=== PATIENT | female | born 1960 | race Caucasian/White ===

== ENCOUNTER 2022-10-10 10:33 | Outpatient (CLI) | payer MEDICAID | END 2022-10-10 23:59 | disposition home or self-care (01) | LOC: RAD 10:33 | PROVIDERS: ATTEND Psychiatry & Neurology Neurology | DX: M79.18 Myalgia, other site (principal); R55 Syncope and collapse | CPT/HCPCS: 95816 ==

== ENCOUNTER 2023-08-19 12:46 | Emergency (ER) | payer MEDICAID ==
[~2023-08-19] VITALS: Ht 162.6 cm; Wt 60.5 kg
[2023-08-19 13:40] VITALS: TEMP 98.2
[2023-08-19] MEDS ORDERED: ZOLP12.555 PO (14:00)
[2023-08-19] MEDS ORDERED: ESTR1TAB28 PO (14:00)
[2023-08-19] MEDS: LORazepam 2 mg/ml vial IV ONE (14:06)
[2023-08-19 15:25] LABS: BASOPHILS % (AUTO) 0.5 % (0-1); EOSINOPHILS % (AUTO) 0.5 % (0-6); HEMATOCRIT 46.7 % (35.0-45.0); HEMOGLOBIN 15.8 g/dl (12.0-16.0); LYMPHOCYTES # (AUTO) 1.2 X10'3 (1.1-4.8); LYMPHOCYTES % (AUTO) 22.7 % (21-51); MEAN CORPUSCULAR HEMOGLOBIN 32.2 PG (27.0-31.0); MEAN CORPUSCULAR HGB CONC 33.9 g/dL (33.0-36.5); MEAN CORPUSCULAR VOLUME 95.1 FL (78-98); MEAN PLATELET VOLUME 7.6 FL (7.4-10.4); MONOCYTES # (AUTO) 0.5 X10'3 (0-0.9); MONOCYTES % (AUTO) 8.9 % (2-12); NEUTROPHILS # (AUTO) 3.6 X10'3 (1.8-7.7); NEUTROPHILS % (AUTO) 67.4 % (42-75); PLATELET COUNT 288 X10'3 (140-440); RED BLOOD COUNT 4.91 X10'6 (4.20-5.60); RED CELL DISTRIBUTION WIDTH 13.4 % (11.5-14.5); WHITE BLOOD COUNT 5.3 X10'3 (4.5-11.0)
[2023-08-19 15:32] LABS: ALBUMIN 3.6 G/DL (3.4-5.0); ANION GAP 7 (8-16); BLOOD UREA NITROGEN 19 MG/DL (7-18); BUN/CREATININE RATIO 24.4 (10.0-20.0); CALCIUM 8.7 MG/DL (8.5-10.1); CHLORIDE 106 MMOL/L (99-107); CREATININE 0.78 MG/DL (0.40-0.90); GLUCOSE 96 MG/DL (70-104); PRO BRAIN NATRIURETIC PEPTIDE < 30 PG/ML (0-125); SODIUM 141 MMOL/L (135-145); TOTAL CARBON DIOXIDE 28.4 MMOL/L (24-32); eCRCL 65 ML/MIN; eGFR 75 ML/MIN
[2023-08-19 20:00] VITALS: BP 110/68; PULSE 68; RESP 13; O2SAT 94
== END 2023-08-19 20:19 | disposition home or self-care (01) ==
LOC: ER 12:46
DX: R07.89 Other chest pain (principal); R00.2 Palpitations; Z79.899 Other long term (current) drug therapy
CPT/HCPCS: 36415; 71045; 80048; 83735; 83880; 84484; 85025; 85379; 93005; 96374; 99285; J2060

== ENCOUNTER 2023-08-22 10:09 | Emergency (ER) | payer MEDICAID ==
[~2023-08-22] VITALS: Ht 154.9 cm; Wt 133.0 kg
[~2023-08-22 10:09] MED LIST: ESTR1TAB28 PO; ZOLP12.555 PO
[2023-08-22 10:19] VITALS: TEMP 98.4
[2023-08-22 15:00] VITALS: BP 99/69; PULSE 65; RESP 13; O2SAT 97
== END 2023-08-22 15:10 | disposition home or self-care (01) ==
LOC: ER 10:10
DX: R00.2 Palpitations (principal); F41.9 Anxiety disorder, unspecified; M81.0 Age-related osteoporosis without current pathological fracture; G89.29 Other chronic pain; R55 Syncope and collapse; Z87.81 Personal history of (healed) traumatic fracture; Z79.899 Other long term (current) drug therapy
CPT/HCPCS: 93005; 99285

== ENCOUNTER 2023-12-05 22:17 | Emergency (ER) | payer MEDICAID ==
[~2023-12-05] VITALS: Ht 162.6 cm; Wt 60.5 kg
[2023-12-05 22:21] VITALS: BP 137/67; PULSE 65; TEMP 98.1; O2SAT 99
[2023-12-05 22:30] VITALS: RESP 14
== END 2023-12-06 01:09 | disposition left against medical advice (07) ==
LOC: ER 22:18
DX: F41.9 Anxiety disorder, unspecified (principal); R53.1 Weakness; Z53.21 Procedure and treatment not carried out due to patient leaving prior to being seen by health care provider

== ENCOUNTER 2023-12-24 15:50 | Emergency (ER) | payer MEDICAID ==
[~2023-12-24] VITALS: Ht 162.6 cm; Wt 61.4 kg
[~2023-12-24 15:50] MED LIST changes: -ZOLP12.555 PO; +ZOLP12.570 PO
[2023-12-24 16:19] LABS: BASOPHILS % (AUTO) 0.7 % (0-1); EOSINOPHILS # (AUTO) 0.2 X10'3 (0-0.9); EOSINOPHILS % (AUTO) 2.9 % (0-6); HEMATOCRIT 48.1 % (35.0-45.0); HEMOGLOBIN 16.2 g/dl (12.0-16.0); LYMPHOCYTES # (AUTO) 1.9 X10'3 (1.1-4.8); LYMPHOCYTES % (AUTO) 35.6 % (21-51); MEAN CORPUSCULAR HEMOGLOBIN 32.4 PG (27.0-31.0); MEAN CORPUSCULAR HGB CONC 33.6 g/dL (33.0-36.5); MEAN CORPUSCULAR VOLUME 96.3 FL (78-98); MEAN PLATELET VOLUME 8.1 FL (7.4-10.4); MONOCYTES # (AUTO) 0.4 X10'3 (0-0.9); MONOCYTES % (AUTO) 6.7 % (2-12); NEUTROPHILS # (AUTO) 2.9 X10'3 (1.8-7.7); NEUTROPHILS % (AUTO) 54.1 % (42-75); PLATELET COUNT 267 X10'3 (140-440); RED CELL DISTRIBUTION WIDTH 13.5 % (11.5-14.5); WHITE BLOOD COUNT 5.3 X10'3 (4.5-11.0)
[2023-12-24 16:38] LABS: ALANINE AMINOTRANSFERASE 74 U/L (12-78); ALBUMIN 3.6 G/DL (3.4-5.0); ALBUMIN/GLOBULIN RATIO 0.9 (1.1-1.5); ALKALINE PHOSPHATASE 84 IU/L (46-116); ANION GAP 8 (8-16); ASPARTATE AMINO TRANSFERASE 37 U/L (10-37); BILIRUBIN,TOTAL 0.4 MG/DL (0.1-1.0); BLOOD UREA NITROGEN 19 MG/DL (7-18); BUN/CREATININE RATIO 18.3 (10.0-20.0); CALCIUM 9.4 MG/DL (8.5-10.1); CHLORIDE 104 MMOL/L (99-107); CREATININE 1.04 MG/DL (0.40-0.90); GLUCOSE 116 MG/DL (70-104); POTASSIUM 3.9 MMOL/L (3.5-5.1); SODIUM 139 MMOL/L (135-145); TOTAL CARBON DIOXIDE 26.7 MMOL/L (24-32); TOTAL PROTEIN 7.4 G/DL (6.4-8.2); eCRCL 48 ML/MIN; eGFR 54 ML/MIN
[2023-12-24 16:54] LABS: FREE T4 (FREE THYROXINE) 1.09 NG/DL (0.73-1.40); PRO BRAIN NATRIURETIC PEPTIDE < 30 PG/ML (0-125); THYROID STIMULATING HORMONE 0.89 ulU/ml (0.34-4.50)
[2023-12-24 17:18] LABS: APTT 30 SECONDS (22-32); PROTHROMBIN TIME 10.7 SECONDS (9.0-12.0)
[2023-12-24 17:24] LABS: BILIRUBIN,URINE NEGATIVE (Neg); CLARITY,URINE SLIGHTLY CLOUDY (Clear); COLOR,URINE YELLOW (Yellow); GLUCOSE, URINE NEGATIVE (Neg); KETONES,URINE NEGATIVE (Neg); LEUKOCYTE ESTERASE ,URINE NEGATIVE (Neg); NITRITES, URINE NEGATIVE (Neg); OCCULT BLOOD,URINE NEGATIVE (Neg); PH,URINE 6.5 (4.8-8.0); PROTEIN,URINE NEGATIVE (Neg); UROBILINOGEN,URINE 0.2 E.U/dL (0.2-1.0)
[2023-12-24 17:40] LABS: UA COLLECTION TYPE CLN CATCH MIDSTREAM
[2023-12-24 17:41] LABS: BACTERIA,URINE 1+ /HPF (Neg); MUCUS STRANDS FEW /LPF (Neg); TRANSITIONAL EPI CELLS,URINE MODERATE /HPF
[2023-12-24 17:42] LABS: RBC,URINE 0-2 /HPF (0-2)
[2023-12-24 17:43] LABS: SQUAMOUS EPITHELIAL CELL,UR MODERATE /LPF (FEW)
[2023-12-24 19:33] VITALS: BP 134/81; PULSE 77; RESP 14; TEMP 98.4; O2SAT 98
== END 2023-12-24 19:33 | disposition home or self-care (01) ==
LOC: ER 15:50
DX: R07.9 Chest pain, unspecified (principal); F41.9 Anxiety disorder, unspecified; Z79.899 Other long term (current) drug therapy
CPT/HCPCS: 36415; 71045; 80053; 81001; 83880; 84439; 84443; 84484; 85025; 85610; 85730; 87088; 93005; 99285

== ENCOUNTER 2024-09-08 22:30 | Inpatient (IN) | payer MEDICAID ==
[~2024-09-08] VITALS: Ht 162.6 cm; Wt 65.6 kg
[2024-09-08 22:58] LABS: BASOPHILS % (AUTO) 0.8 % (0-1); EOSINOPHILS # (AUTO) 0.1 X10'3 (0-0.9); EOSINOPHILS % (AUTO) 3.3 % (0-6); HEMATOCRIT 45.9 % (35.0-45.0); HEMOGLOBIN 15.2 g/dl (12.0-16.0); LYMPHOCYTES # (AUTO) 2.3 X10'3 (1.1-4.8); LYMPHOCYTES % (AUTO) 53.3 % (21-51); MEAN CORPUSCULAR HEMOGLOBIN 32.4 PG (27.0-31.0); MEAN CORPUSCULAR HGB CONC 33.2 g/dL (33.0-36.5); MEAN CORPUSCULAR VOLUME 97.7 FL (78-98); MEAN PLATELET VOLUME 7.6 FL (7.4-10.4); MONOCYTES # (AUTO) 0.3 X10'3 (0-0.9); MONOCYTES % (AUTO) 7.4 % (2-12); NEUTROPHILS # (AUTO) 1.5 X10'3 (1.8-7.7); NEUTROPHILS % (AUTO) 35.2 % (42-75); PLATELET COUNT 270 X10'3 (140-440); RED BLOOD COUNT 4.69 X10'6 (4.20-5.60); RED CELL DISTRIBUTION WIDTH 13.3 % (11.5-14.5); WHITE BLOOD COUNT 4.4 X10'3 (4.5-11.0)
[2024-09-08 23:08] LABS: D-DIMER < 0.19 MG/L FEU (0-0.50)
[2024-09-08 23:11] LABS: ALANINE AMINOTRANSFERASE 29 U/L (12-78); ALBUMIN 3.6 G/DL (3.4-5.0); ALBUMIN/GLOBULIN RATIO 1.1 (1.1-1.5); ALKALINE PHOSPHATASE 62 IU/L (46-116); ANION GAP 8 (8-16); ASPARTATE AMINO TRANSFERASE 16 U/L (10-37); BILIRUBIN,TOTAL 0.5 MG/DL (0.1-1.0); BLOOD UREA NITROGEN 11 MG/DL (7-18); BUN/CREATININE RATIO 17.7 (10.0-20.0); CALCIUM 8.9 MG/DL (8.5-10.1); CHLORIDE 105 MMOL/L (99-107); CREATININE 0.62 MG/DL (0.40-0.90); GLUCOSE 99 MG/DL (70-104); POTASSIUM 3.2 MMOL/L (3.5-5.1); SODIUM 140 MMOL/L (135-145); TOTAL CARBON DIOXIDE 26.7 MMOL/L (24-32); TOTAL PROTEIN 6.9 G/DL (6.4-8.2); eCRCL 80 ML/MIN; eGFR > 90 ML/MIN
[2024-09-08 23:20] LABS: CREATINE KINASE 38 U/L (26-192); MAGNESIUM 1.9 MG/DL (1.5-2.4); PRO BRAIN NATRIURETIC PEPTIDE 78 PG/ML (0-125)
[2024-09-08 23:22] LABS: FREE T4 (FREE THYROXINE) 0.99 NG/DL (0.73-1.40)
[2024-09-08 23:33] LABS: TOTAL CELLS COUNTED 100
[2024-09-08] MEDS ORDERED: CHOL100017 PO (23:57)
[2024-09-08] MEDS ORDERED: ALPR1TAB7 PO (23:57)
[2024-09-09] VITALS (13 sets, daily range): BP systolic 102–137; BP diastolic 61–77; PULSE 54–112; RESP 12–18; TEMP 96.6–97.6; O2SAT 94–99
[2024-09-09] MEDS ORDERED: potassium Cl 40MEQ/1/2NS 520ml 520 ML IV PRN (00:45)
[2024-09-09] MEDS ORDERED: magnesium sulf-water 2g/50mL 50 ML IV PRN (00:45)
[2024-09-09] MEDS ORDERED: mag hydrox/Alum hydrox/simeth 30ml oral suspension PO PRN (00:45)
[2024-09-09] MEDS ORDERED: morphine 2 MG/ML inj. syringe IV PRN ×2 (00:45)
[2024-09-09] MEDS ORDERED: magnesium sulf-water 4G/100mL 100 ML IV PRN (00:45)
[2024-09-09] MEDS ORDERED: magnesium Cl slow-release 64mg tablet PO PRN (00:45)
[2024-09-09] MEDS ORDERED: ondansetron/PF 4mg/2ml inj IV PRN (00:45)
[2024-09-09] MEDS ORDERED: potassium Cl 20 mEq SR tablet PO PRN (00:45)
[2024-09-09] MEDS ORDERED: magnesium hydroxide 30ml (MOM) UD suspension PO PRN (00:45)
[2024-09-09] MEDS ORDERED: zolpidem 5mg tablet PO PRN (00:45)
[2024-09-09] MEDS: potassium Cl 20 mEq SR tablet PO PRN (01:18)
[2024-09-09] MEDS: normal saline 1000ml 1,000 ML IV SCH (01:18)
[2024-09-09 01:33] LABS: MAGNESIUM 1.9 MG/DL (1.5-2.4); POTASSIUM 3.4 MMOL/L (3.5-5.1)
[2024-09-09] MEDS ORDERED: metoprolol tartrate 1mg/ml inj IV PRN (01:45)
[2024-09-09] MEDS ORDERED: aminophylline 500mg/20ml vial IV PRN (01:45)
[2024-09-09] MEDS ORDERED: nitroGLYCERIN 0.4mg SUBLingual tab SL PRN (01:45)
[2024-09-09] MEDS: acetaminophen 325mg tablet PO PRN (02:57)
[2024-09-09] MEDS: estradiol 1mg tablet PO SCH (07:10)
[2024-09-09] MEDS: docusate sod 100mg capsule PO SCH (07:11)
[2024-09-09] MEDS: cholecalciferol (vitamin D3) 1,000 unit (25mcg) tablet PO SCH (07:11)
[2024-09-09] MEDS: ALPRAZolam 0.5mg tablet PO SCH (07:11)
[2024-09-09] MEDS: K and/or MAG REPLACEMENT MC SCH (07:15)
[2024-09-09] MEDS: heparin, porcine 5000 units/ml vial SQ SCH (07:17)
[2024-09-09] MEDS: regadenoson 0.4mg/5ml syringe IV PRN (09:14)
[2024-09-09] MEDS: pantoprazole 40MG/NS 100ML BAG 100 ML IV SCH (12:51)
[2024-09-09 13:20] LABS: CHOL/HDL RATIO 2.6 (0.00-4.99); CHOLESTEROL 250 MG/DL (0-200); HDL CHOLESTEROL 95 MG/DL (35-60); LDL CHOLESTEROL 129 MG/DL (50-100); TRIGLYCERIDES 86 MG/DL (20-135)
[2024-09-09] MEDS ORDERED: PANT-47 PO (14:31)
[2024-09-09] MEDS ORDERED: ATOR10TA PO (14:55)
== END 2024-09-09 16:11 | disposition home or self-care (01) | DRG 198 ==
LOC: ER 22:31 → ED HOLD 09-09 00:42 → PCU 3S 09-09 01:40
PROVIDERS: ADMIT Surgery; ATTEND Family Medicine
PROC: 4A02XM4 Measurement of Cardiac Total Activity, External Approach (ICD-10-PCS; principal; 2024-09-09)
PROC: 3E033HZ Introduction of Radioactive Substance into Peripheral Vein, Percutaneous Approach (ICD-10-PCS; 2024-09-09)
DX: I20.89 Other forms of angina pectoris (principal); E78.5 Hyperlipidemia, unspecified; F41.9 Anxiety disorder, unspecified; Z79.899 Other long term (current) drug therapy; G47.00 Insomnia, unspecified; N95.1 Menopausal and female climacteric states; M81.0 Age-related osteoporosis without current pathological fracture
CPT/HCPCS: 36415; 71045; 78452; 80053; 80061; 82550; 83735; 83880; 84132; 84439; 84443; 84484; 85007; 85025; 85379; 87081; 93005; 93017; 93306; 99285; A9500; G0378; J2470; J2785; J7030

== ENCOUNTER 2024-12-24 20:17 | Emergency (ER) | payer MEDICAID, SELFPAY ==
[~2024-12-24] VITALS: Ht 162.6 cm; Wt 64.0 kg
[~2024-12-24 20:17] MED LIST changes: +ALPR1TAB7 PO; +ATOR10TA PO; +CHOL100017 PO; +PANT-47 PO
--- NOTE | 2024-12-24 20:40 | Physician Documentation ---
History of Present Illness ~ Chief Complaint: Rapid Heartbeat Stated Complaint: HEART PROBLEMS Time Seen by MD: 20:21 Primary Medical Doctor: LILIANA FLORES 64-year-old female who presents with palpitations She reports a history of SVT in the past. She also reports a history of anxiety. She tells me that she had a normal day including went for a 4 mi walk this morning and felt okay. She was sitting at home, and suddenly started to feel like her heart was racing. She started to feel lightheaded and short of breath. She felt clammy. This felt similar to past episodes and so she tried doing vagal maneuvers. She also took a Xanax. However the symptoms continued and so she called an ambulance. EMS reports that she was in sinus rhythm, mildly tachycardic. She was given IV fluids. By time of my evaluation she states she is feeling somewhat better. She still feels slightly anxious, but no longer is having bad palpitations. She denies any chest pain or significant shortness of breath currently. Medication Reconciliation Allergies: Coded Allergies: No Known Allergies (Unverified , 12/24/24) Scheduled Alprazolam (Alprazolam), 1 TAB PO TID, (Reported) Atorvastatin Calcium (Lipitor), 4 TAB PO DAILY Cholecalciferol (Vitamin D3) (Vitamin D3), 1 TAB PO DAILY, (Reported) Estradiol (Estradiol), 1 TAB PO DAILY, (Reported) Pantoprazole Sodium (PROTONIX tablet), 40 MG PO DAILY Scheduled PRN Zolpidem Tartrate (Zolpidem Tartrate), 1 TAB PO HS PRN for anxiety, (Reported) Past Medical History Past Medical History: Osteoporosis, *PSYCH*, Anxiety Past Surgical History: noncontributory Lives In: Home Review of Systems Constitutional: Denies: fever Respiratory: Reports: shortness of breath Cardiovascular: Reports: lightheadedness, palpitations; Denies: chest pain Physical Exam Vital Signs: Temperature: 98.1, Source: Oral, Heart Rate: 67, Respiratory Rate: 16, BP: 130/74, Pulse Oximetry: 97, Weight: 64.000 Oxygen Flow Rate: 0 Physical Exam General: This is a pleasant and overall healthy appearing middle-aged female, son at bedside HEENT: Atraumatic, oropharynx is moist Heart: Regular rate and rhythm, heart rate in the 60s to 70s, appears sinus rhythm on the monitor, normal-appearing peripheral perfusion Lungs: Clear breath sounds bilateral, normal work of breathing, normal oxygen saturation on room air Abdomen: Soft, nondistended, nontender all quadrants Extremities: Warm and well-perfused, no posterior calf or thigh tenderness, no edema Neuro: Alert and oriented Psychiatric: Appears mildly anxious but is cooperative Progress Results/Orders Results/Orders Orders - CRISTIANA WARD MD Electrocardiogram (12/24/24 20:22) Chest,Single View (12/24/24 20:31) Monitor (12/24/24 20:31) Saline Lock (12/24/24 20:31) Oxygen (12/24/24 20:31) Completed Orders - CRISTIANA WARD MD Chest,Single View (12/24/24 20:31) Cbc/Diff (12/24/24 20:31) BMP (12/24/24 20:31) PBNP (12/24/24 20:31) Hs Troponin I W Calculations (12/24/24 20:31) MG (12/24/24 20:40) Vital Signs 12/24/24 12/24/24 12/24/24 12/24/24 20:18 20:24 20:39 21:33 Temp 98.1 Pulse 70 67 60 Resp 16 16 16 16 B/P (MAP) 130/76 130/74 (92) 118/71 (87) Pulse Ox 97 97 98 O2 Flow Rate 0 12/24/24 22:23 Temp 98.1 Pulse 70 Resp 16 B/P (MAP) 118/80 Pulse Ox 99 Laboratory Tests Test 12/24/24 21:15 White Blood Count 4.3 L Red Blood Count 4.72 Hemoglobin 15.5 Hematocrit 45.8 H Mean Corpuscular Volume 97.1 Mean Corpuscular Hemoglobin 32.9 H Mean Corpuscular Hemoglobin Concent 33.9 Red Cell Distribution Width 13.8 Platelet Count 260 Mean Platelet Volume 7.8 Neutrophils (%) (Auto) 56.1 Lymphocytes (%) (Auto) 32.6 Monocytes (%) (Auto) 8.8 Eosinophils (%) (Auto) 2.0 Basophils (%) (Auto) 0.5 Neutrophils # (Auto) 2.4 Lymphocytes # (Auto) 1.4 Monocytes # (Auto) 0.4 Eosinophils # (Auto) 0.1 Basophils # (Auto) 0.0 CBC Comment Sodium Level 137 Potassium Level 3.8 Chloride Level 103 Carbon Dioxide Level 29.6 Anion Gap 4 L Blood Urea Nitrogen 37 H Creatinine 1.19 H Estimated GFR/1.73 m2 46 BUN/Creatinine Ratio 31.1 H Glucose Level 106 H Calcium Level 10.0 Magnesium Level 2.0 Troponin I High Sensitivity 5 Pro-B-Type Natriuretic Peptide < 30 Albumin 3.5 Chemistry Comments EKG/XRAY/CT/US/VASC/MRI EKG : Additional Comment I personally interpreted the EKG and this shows: Sinus rhythm, normal QTC, no acute ischemic changes Chest X-Ray : Additional Comments I personally reviewed the x-ray, and it shows: No acute process including no pulmonary edema, focal consolidation or mediastinal widening Medical Decision Making Differential Dx:Considerations: Include: atrial dysrhythmia, atrial fibrillation, PACs, PSVT, torsades de pointes, ventricular fibrillation, ventricular tachycardia Differential Dx:Considerations: Include anxiety/panic attack, Include electrolyte disorder, Include hyperthyroidism Assessment The patient presents with palpitations. Per her history and exam this seems likely to represent either an episode of SVT, anxiety, or both. At time of my evaluation she is feeling better after taking Xanax. Her EKG is reassuring. Her laboratory testing is unremarkable, she appears possibly mildly dehydrated but no other dangerous abnormality. After a period of observation she remained in sinus rhythm with no significant symptoms. She was reassured, and will be discharged with ongoing outpatient follow up with her head sampler. Return precautions given. Departure Time of Disposition: 22:00 Disposition: 01 HOME / SELF CARE / HOMELESS Impression: Primary Impression: Palpitations Additional Impression: Panic attack as reaction to stress Condition: Improved Discharge Instructions: Palpitations Referrals: NO PRIMARY CARE PROVIDER (PCP) Education Educated: Patient, Family Educated regarding: diagnosis, treatment, need for follow up Signature Scribe Signature: na Attestation: CRISTIANA Partida MD Dec 24, 2024 20:40
--- NOTE | 2024-12-24 21:10 | RADIOLOGY REPORT ---
CHEST RADIOGRAPH Indication: CP Technique: Single frontal view of the chest was obtained COMPARISON: DI CHEST,SINGLE VIEW on DOS: 09/08/24, DI CHEST,SINGLE VIEW on DOS: 12/24/23, DI CHEST,SING LE VIEW on DOS: 08/19/23 FINDINGS: Lines and Tubes: None Lungs: Clear Pleura: No effusion. No pneumothorax. Cardiomediastinal contours: Unremarkable Bones: Unremarkable IMPRESSION: 1. No acute disease.
[2024-12-24 21:29] LABS: MEAN PLATELET VOLUME 7.8 FL (7.4-10.4); RED CELL DISTRIBUTION WIDTH 13.8 % (11.5-14.5)
[2024-12-24 21:52] LABS: CREATININE 1.19 MG/DL (0.40-0.90); PRO BRAIN NATRIURETIC PEPTIDE < 30 PG/ML (0-125); TOTAL CARBON DIOXIDE 29.6 MMOL/L (24-32); eCRCL 41 ML/MIN; eGFR 46 ML/MIN
[2024-12-24 22:23] VITALS: BP 118/80; PULSE 70; RESP 16; TEMP 98.1; O2SAT 99
--- NOTE | 2024-12-25 10:57 | ELECTROCARDIOGRAPH REPORT ---
[facility] Test Date: 2024-12-24 Test Time: 20:23:09 Pat Name: KIMBERLEY CRUZ Department: EMERGENCY ROOM Room: Gender: F Distributing Clerk: : [id number] Requested By: CRISTIANA WARD Order Number: [id number] Reading MD: Measurements Intervals [place] Rate: 63 P: 57 UT: 172 QRS: -70 QRSD: 87 T: 66 QT: 413 QTc: 423 Interpretive Statements Sinus rhythm Left anterior fascicular block RSR' in V1 or V2, right VCD or RVH Please click the below link to view image of tracing.
== END 2024-12-24 22:26 | disposition home or self-care (01) ==
LOC: ER 20:17
DX: R00.2 Palpitations (principal); F43.0 Acute stress reaction; F41.9 Anxiety disorder, unspecified; M81.0 Age-related osteoporosis without current pathological fracture; Z79.899 Other long term (current) drug therapy
CPT/HCPCS: 36415; 71045; 80048; 83735; 83880; 84484; 85025; 93005; 99285